=== PATIENT | female | born 1945 | race Caucasian/White ===

== ENCOUNTER → 2017-09-18 | Outpatient (CLI) | payer MEDICARE, OTHER ==
[~2017-09-18] MED LIST: AMLO-98 PO; ASPI81TA94 PO; AZIT-1 PO; CALC-734 PO; CHOL378P6 PO; EZET10TA41 PO; GLUC-396 PO; HCTZ25 PO; HYDR-2966 PO; KET10 PO; LEVO-3 PO; LEVO-317 PO; LEVO100T95 PO; LEVO137T23 PO; LEVO75TA73 PO; LOR5/325 PO; LUTE20CA11 PO; METH500T6 PO; MOMR ENA; MULT1TAB64 PO; NIAC500T85 PO; OLM20 PO; OLME5TAB8 PO; OMEG-11 PO; ONDA4TAB PO; ONDA4TAB97 PO; ROBC PO; ROSU5TAB8 PO; TRIA1CAP85 PO; UBID200C15 PO; [UNRECOGNIZED DRUG - CODE] PO; [UNRECOGNIZED DRUG - OTHER] TOP
[2017-09-18 08:34] LABS: PLATELET COUNT, AUTOMATED 206 K/uL (150-450)
[2017-09-18 08:43] LABS: LDL CHOLESTEROL 96 mg/dl
== END ==
LOC: LAB 08:05
PROVIDERS: ATTEND Emergency Medicine
DX: I10 Essential (primary) hypertension (principal); E03.9 Hypothyroidism, unspecified; E55.9 Vitamin D deficiency, unspecified; E78.2 Mixed hyperlipidemia
CPT/HCPCS: 36415; 82040; 82247; 82306; 82310; 82374; 82435; 82465; 82565; 82947; 83718; 84075; 84132; 84155; 84295; 84443; 84450; 84460; 84478; 84520; 85025

== ENCOUNTER → 2017-09-20 | Outpatient (CLI) | payer MEDICARE, OTHER | LOC: LAB 09:36 | PROVIDERS: ATTEND Emergency Medicine | DX: G62.9 Polyneuropathy, unspecified (principal); R73.01 Impaired fasting glucose | CPT/HCPCS: 36415; 82607; 83036 ==

== ENCOUNTER → 2017-10-05 | Outpatient (CLI) | payer MEDICARE, OTHER ==
--- NOTE | 2017-10-05 15:29 | RADIOLOGY IMAGING REPORT ---
FACILITY: [facility] [place] PATIENT NAME: ROZINA CARMEN : [id number] MR: [id number] V: [id number] EXAM DATE: ORDERING PHYSICIAN: COLT NOEL TECHNOLOGIST: Sania Pickens PROCEDURE:BILATERAL DIGITAL SCREENING MAMMOGRAM WITH CAD ASSISTED INTERPRETATION & 3D TOMOSYNTHESIS COMPARISON:Prior mammograms 10/04/16, 10/04/15, 10/02/14, 09/29/13, 09/27/12, 09/25/11. INDICATIONS:screening FINDINGS: Moderately dense fibroglandular tissue is seen throughout the breasts. The parenchymal pattern has remained stable allowing for difference in mammographic technique & patient positioning. There is no evidence of malignant appearing mass, malignant appearing calcifications or other secondary sign of malignancy in either breast. DIAGNOSTIC CATEGORY 1--NEGATIVE. RECOMMENDATIONS: ROUTINE MAMMOGRAM AND CLINICAL EVALUATION. IMPRESSION: BIRADS 1: Negative. No significant abnormality is seen. Dictated by: Hope Curiel M.D. on 10/05/2017 at 13:59 Transcribed by: MIGUEL on 10/05/2017 at 14:03 Approved by: Hope Curiel M.D. on 10/05/2017 at 15:28 [facility]
== END ==
LOC: MAMO 02:37
PROVIDERS: ATTEND Emergency Medicine
DX: Z12.31 Encounter for screening mammogram for malignant neoplasm of breast (principal)
CPT/HCPCS: 77063; 77067

== ENCOUNTER → 2018-09-18 | Outpatient (CLI) | payer MEDICARE, OTHER ==
[~2018-09-18] MED LIST changes: +AMLO-125 PO; +AMLO-127 PO; +AMOX-559 PO
[2018-09-18 07:27] LABS: LDL CHOLESTEROL 120 mg/dl
[2018-09-18 07:51] LABS: PLATELET COUNT, AUTOMATED 244 K/uL (150-450)
== END ==
LOC: LAB 06:42
PROVIDERS: ATTEND Emergency Medicine
DX: E78.2 Mixed hyperlipidemia (principal); E03.9 Hypothyroidism, unspecified; I10 Essential (primary) hypertension
CPT/HCPCS: 36415; 82040; 82247; 82310; 82374; 82435; 82465; 82565; 82947; 83718; 84075; 84132; 84155; 84295; 84443; 84450; 84460; 84478; 84520; 85025